=== PATIENT | male | born 2000 | race American Indian/Alaskan Native ===

== ENCOUNTER 2023-06-01 18:26 | Emergency (ER) | payer OTHER, SELFPAY ==
[2023-06-01 18:56] VITALS: BP 129/82; PULSE 100; RESP 16; TEMP 36.9; O2SAT 99; BMI 25.8
[2023-06-01] MEDS: ONDANSETRON 4 MG/2 ML INJ IV (20:04)
[2023-06-01 20:20] LABS: Chloride 100 mmol/L (98-107); HEMOLYSIS < 15 (0-50)
[2023-06-01 20:22] LABS: Add Manual Diff / Slide Review NO; Basophils Absolute Auto 100 /uL (0-100); Basophils Percent Auto 0.8 % (0-2); Eosinophils Absolute Auto 100 /uL (0-450); Eosinophils Percent Auto 0.8 % (2-4); Hematocrit 44.8 % (41-53); Hemoglobin 15.3 g/dL (13.5-17.5); Lymphocytes Absolute Auto 1200 /uL (1100-4500); Lymphocytes Percent Auto 14.7 % (25-40); Mean Corpuscular Hemoglobin 27.6 PG (26-34); Mean Corpuscular Volume 81.1 fL (80-100); Monocytes Absolute Auto 400 /uL (0-900); Monocytes Percent Auto 5.2 % (3-14); Neutrophils Absolute Auto 6600 /uL (1500-7000); Neutrophils Percent Auto 78.5 % (50-75); Platelet Count 236 X10^3/uL (150-400); Red Blood Cell Count 5.53 X10^6/uL (4.5-5.9); Red Cell Distribution Width 14.1 % (11.6-14.8); White Blood Cell Count 8.3 X10^3/uL (4.5-11.0)
[2023-06-01 20:23] LABS: Alanine Aminotransferase 24 IU/L (<50); Albumin Globulin Ratio 1.4 (1.0-2.8); Alkaline Phosphatase 92 U/L (38-126); Aspartate Aminotransferase 24 IU/L (17-59); BUN Creatinine Ratio 8.8 (6-22); Bilirubin Total 0.6 mg/dL (0.2-1.3); Blood Urea Nitrogen 10 mg/dL (9-20); Carbon Dioxide 31 mmol/L (22-32); Estimated Glomerular Filt Rate > 60 mL/min (>60); Globulin 3.6 g/dL (1.7-4.1); Glucose 107 mg/dL (70-100); Lipase 114 U/L (23-300); Sodium 141 mmol/L (137-145); Total Protein 8.6 g/dL (6.3-8.2)
[2023-06-01] MEDS: SODIUM CHLORIDE 0.9% 1,000 ML 1000 ML IV (20:51)
[2023-06-01 23:00] VITALS: BP 124/70; PULSE 85; RESP 18; O2SAT 100
--- NOTE | 2023-06-01 23:24 | ED_ITS ---
HPI - General Adult General Chief complaint: Abdominal Pain Stated complaint: SENT BY [facility]/N/V Time Seen by Provider: 06/01/23 21:24 Source: patient Mode of arrival: Ambulatory History of Present Illness HPI narrative: 23-year-old gentleman with no diagnosed medical issues presents with 6 months of abdominal pain, intermittent vomiting, intermittent diarrhea. He is new to the area and is unable to establish care with a primary physician was told to come to the ER if symptoms were worsening. He notes that symptoms started around November of this year and had initially been having issues monthly than bimonthly and now is up to almost every other day. Believes he is actually been gaining weight rather than losing weight. He describes no fevers. He is tried Pepcid, Tums, Imodium none of which seem to make much difference. He describes days we has significantly early satiety and days with uncontrolled hunger despite volumes of food eaten. He describes significant bloating, belching and overall abdominal discomfort. There has been no bloody emesis nor bloody stool. Related Data Previous Rx's Medication Instructions Recorded omeprazole 40 mg capsule,delayed 40 mg PO DAILY #30 caps 06/01/23 release ondansetron 4 mg disintegrating 4 mg PO Q8H PRN nausea and 06/01/23 tablet vomiting #30 tabs Allergies Allergy/AdvReac Type Severity Reaction Status Date / Time No Known Drug Allergies Allergy Verified 06/01/23 19:55 Review of Systems Review of Systems Narrative: Pertinent positive and negative findings as per HPI Patient History Social History Smoking Status: Never smoker Smoking Status: Never smoker Exam Initial Vital Signs Initial Vital Signs: Vital Signs Temperature 98.5 F 06/01/23 18:56 Pulse Rate 100 H 06/01/23 18:56 Respiratory Rate 16 06/01/23 18:56 Blood Pressure 129/82 06/01/23 18:56 Pulse Oximetry 99 06/01/23 18:56 Oxygen Delivery Method Room Air 06/01/23 18:56 General: Healthy appearing, in no acute distress. Able to give a complete and coherent history. Well-nourished well-developed HEENT: Moist mucous membranes, normal sclera with reactive pupils, Respiratory: Lungs are clear to auscultation, no wheezing no rales no rhonchi. Full and symmetrical air movement Cardiac: Regular rate and rhythm no murmurs no bruits Abdomen: Soft, nontender, good bowel tones, no flank pain Skin: Warm and dry, no rashes Neurologic: Grossly neurologically intact with no obvious asymmetries or abnormalities Extremities: No trauma, well perfused Psych: Cooperative, appropriate insight and affect Course Orders Ordered: ED Orders 06/01/23 20:08 Complete Blood Count AUTO DIFF Stat Comprehensive Metabolic Panel Stat Lipase Stat Ondansetron HCl (Ondansetron 4 Mg Odt) 4 mg PO NOW PRN PRN Reason: Nausea And Vomiting Ondansetron HCl (Ondansetron 4 Mg/2 Ml Inj) 4 mg IV NOW PRN PRN Reason: Nausea And Vomiting Last Admin: 06/01/23 20:04 Dose: 4 mg Documented By: MICHELL Discontinued Medications Sodium Chloride (Normal Saline 0.9%) 1,000 mls @ 1,000 mls/hr IV BOLUS ONE Stop: 06/01/23 20:55 Last Infusion: 06/01/23 21:48 Dose: 0 mls/hr Documented By: Admin: 06/01/23 20:51 Dose: 1,000 mls/hr Documented By: MICHELL Vital Signs Vital signs: Vital Signs - 8 hr 06/01/23 18:56 Temperature 98.5 F Pulse Rate 100 H Respiratory Rate 16 Blood Pressure 129/82 Pulse Oximetry 99 Oxygen Delivery Method Room Air Medical Decision Making Lab Data 06/01/23 20:08 06/01/23 20:08 Labs: Lab Results 06/01/23 06/01/23 Range/Units 20:08 20:08 WBC 8.3 (4.5-11.0) X10^3/uL RBC 5.53 (4.5-5.9) X10^6/uL Hgb 15.3 (13.5-17.5) g/dL Hct 44.8 (41-53) % MCV 81.1 (80-100) fL MCH 27.6 (26-34) PG MCHC 34.0 (30-36) % RDW 14.1 (11.6-14.8) % Plt Count 236 (150-400) X10^3/uL Neut % (Auto) 78.5 H (50-75) % Lymph % (Auto) 14.7 L (25-40) % [place] % (Auto) 5.2 (3-14) % Eos % (Auto) 0.8 L (2-4) % Baso % (Auto) 0.8 (0-2) % Neut # (Auto) 6600 (9696-7226) /uL Lymph # (Auto) 1200 (8233-4282) /uL [place] # (Auto) 400 (0-900) /uL Eos # (Auto) 100 (0-450) /uL Baso # (Auto) 100 (0-100) /uL Sodium 141 (137-145) mmol/L Potassium 4.0 (3.4-5.1) mmol/L Chloride 100 (98-107) mmol/L Carbon Dioxide 31 (22-32) mmol/L BUN 10 (9-20) mg/dL Creatinine 1.13 (0.66-1.25) mg/dL Estimated GFR > 60 (>60) mL/min BUN/Creatinine Ratio 8.8 (6-22) Glucose 107 H (70-100) mg/dL Calcium 10.0 (8.4-10.2) mg/dL Total Bilirubin 0.6 (0.2-1.3) mg/dL AST 24 (17-59) IU/L ALT 24 (<50) IU/L Alkaline Phosphatase 92 (38-126) U/L Total Protein 8.6 H (6.3-8.2) g/dL Albumin 5.0 (3.5-5.0) g/dL Globulin 3.6 (1.7-4.1) g/dL Albumin/Globulin Ratio 1.4 (1.0-2.8) Lipase 114 (23-300) U/L Urine Dip Bedside Urine Glucose Negative Bedside Urine Bilirubin - Negative Bedside Urine Ketone - Negative Urine Specific Marc[place] 1.010 Bedside Urine Occult Blood - Negative Bedside Urine pH 6.5 Bedside Urine Protein - Negative Bedside Urine Urobilinogen - Negative Bedside Urine Nitrite - Negative Bedside Urine Leukocytes - Negative Esterase Point of care testing: Urine Dip Bedside Urine Glucose Negative Bedside Urine Bilirubin - Negative Bedside Urine Ketone - Negative Urine Specific [place] 1.010 Bedside Urine Occult Blood - Negative Bedside Urine pH 6.5 Bedside Urine Protein - Negative Bedside Urine Urobilinogen - Negative Bedside Urine Nitrite - Negative Bedside Urine Leukocytes - Negative Esterase MDM Narrative Medical decision making narrative: CC: 6 months worsenign nausea, vomiting , diarrhea Complicating co-morbidities: Symptoms have been ongoing for 6 months. Patient denies any marijuana use. Data collected from: patient, mother Social determinants of health that may influence the patients condition: No current primary care physician appointment is set up. Differential considered: Anxiety, H pylori, C diff, in the absence of any marijuana use, cannabinoid hyperemesis syndrome is less likely, other explanations for gastroparesis Exam documented above, pertinent findings include: Very benign exam Lab Test results independently reviewed as above. Pertinent findings: CBC is unremarkable Metabolic panel is reassuring Treatments: Parenteral Zofran Discussion: 23-year-old gentleman with 6 months of increasing nausea and vomiting diarrhea. Well his symptoms are certainly concerning in the absence of weight loss, blood in any of the vomit or stool, normal labs and very benign exam there is no indication for additional imaging or hospitalization at this time. Does need to see his primary care physician. Has been given package to return to the lab with an outpatient stool sample to check for stool pathogens. Will have him try omeprazole for a month to see if this changes anything. Prescription for Zofran for symptomatic control of his nausea. Findings are reviewed with him, he is safe for discharge home Discharge Plan Departure Patient Disposition: Home Clinical Impression: Diarrhea Qualifiers: Diarrhea type: unspecified type Qualified Code(s): R19.7 - Diarrhea, unspecified Nausea & vomiting Qualifiers: Vomiting type: unspecified Qualified Code(s): R11.2 - Nausea with vomiting, unspecified Activity Restrictions/Additional Instructions: Thank you for coming in today While I do not have a definitive answer for the 6 months of increasing nausea, vomiting, diarrhea and bloating I am also not finding any life-threatening abnormalities. There is no sign of severe bacterial infection, chronic anemia, liver or kidney problems. At this time I would still like to get another stool sample. I have given you an outpatient request, please bring that back in when you are able to provide a sample. If the stool is formed it is not going to be helpful. A stool sample specifically for diarrhea. I am also going to suggest that you try omeprazole, a stomach acid weigher and mixer medication, daily for the next month to see if changes your symptoms. To help with the symptoms themselves, I have given you a prescription for Zofran for nausea. Please contact Dr. Thomas's office and let them know that you were seen in the emergency department, see if you are able to schedule an emergency follow-up visit prior to your new patient appointment later in June. If you find that you are getting worse or develop any new symptoms, please feel free to return to the emergency department for further evaluation. Prescriptions: New omeprazole 40 mg capsule,delayed release(DR/EC) 40 mg PO DAILY Qty: 30 0RF ondansetron 4 mg tablet,disintegrating 4 mg PO Q8H PRN (Reason: nausea and vomiting) Qty: 30 0RF Referrals: Miscellaneous,Doctor, MD [Primary Care Provider] - Stand Alone Forms: Patient Portal/API
[2023-06-01 23:48] VITALS: BP 123/90; PULSE 92; RESP 18; TEMP 36.7; O2SAT 98
[2023-06-02 15:18] LABS: Adenovirus F 40/41 Not Detected (Not Detect); Astrovirus Not Detected (Not Detect); Campylobacter Not Detected (Not Detect); Clostridium difficile toxin AB Not Detected (Not Detect); Cryptosporidium Not Detected (Not Detect); Cyclospora cayetanensis Not Detected (Not Detect); Entamoeba histolytica Not Detected (Not Detect); Enteroaggregative E.coli Not Detected (Not Detect); Enteropathogenic E.coli Not Detected (Not Detect); Enterotoxigenic E.coli It/st Not Detected (Not Detect); Giardia lamblia Not Detected (Not Detect); Norovirus GI/GII Not Detected (Not Detect); Plesiomonsa shigelloides Not Detected (Not Detect); Rotavirus A Not Detected (Not Detect); Salmonella Not Detected (Not Detect); Sapovirus Not Detected (Not Detect); Shiga-like toxin-prod E.coli Not Detected (Not Detect); Shigella/Enteroinvasive E.coli Not Detected (Not Detect); Vibrio Not Detected (Not Detect); Vibrio cholerae Not Detected (Not Detect); Yersinia enterocolitica Not Detected (Not Detect)
== END 2023-06-02 00:03 | disposition home or self-care (01) ==
LOC: ED 23:52 → LAB 06-02 23:42
PROVIDERS: Emergency Provider Emergency Medicine
DX: R11.2 Nausea with vomiting, unspecified (principal); R19.7 Diarrhea, unspecified
CPT/HCPCS: 36415; 80053; 81003; 83690; 85025; 87507; 99284; J2405

== ENCOUNTER → 2023-08-30 16:04 | Outpatient (CLI) | payer OTHER, SELFPAY ==
--- NOTE | 2023-08-30 16:07 | DI.RAD.S_ITS ---
PROCEDURE: XR ANKLE LT MIN 3V INDICATIONS: Left ankle injury TECHNIQUE: 3 views of the ankle were acquired. COMPARISON: None. FINDINGS: Bones: No fractures or dislocations. Ankle mortise is normally aligned. No suspicious bony lesions. The talar dome demonstrates no jonny abnormality. Soft tissues: No tibiotalar joint effusion. Achilles tendon appears normal. IMPRESSION: Normal ankle plain films. If it would be helpful for clinical management decision making, please consider a dedicated, scheduled ankle MRI for further evaluation (assuming that there is no contraindication). Dictated by: Clifford Ritchie M.D. on 08/30/2023 at 15:39 Approved by: Clifford Ritchie M.D. on 08/30/2023 at 15:40
== END ==
PROVIDERS: Referring Provider Registered Nurse; Visit Provider Registered Nurse
DX: M25.572 Pain in left ankle and joints of left foot (principal)
CPT/HCPCS: 73610

== ENCOUNTER → 2024-09-06 11:52 | Outpatient (CLI) | payer OTHER, SELFPAY ==
[2024-09-06 12:46] LABS: Hemoglobin A1C% w Est Avg Glu 5.3 % (4.0-6.0)
[2024-09-06 13:05] LABS: Alanine Aminotransferase 46 IU/L (<50); Albumin 4.7 g/dL (3.5-5.0); Albumin Globulin Ratio 1.8 (1.0-2.8); Alkaline Phosphatase 80 U/L (38-126); Aspartate Aminotransferase 33 IU/L (17-59); BUN Creatinine Ratio 9.2 (6-22); Bilirubin Total 0.9 mg/dL (0.2-1.3); Blood Urea Nitrogen 11 mg/dL (9-20); Calcium 10.1 mg/dL (8.4-10.2); Carbon Dioxide 29 mmol/L (22-32); Chloride 104 mmol/L (98-107); Cholesterol 181 mg/dL (140-199); Estimated Glomerular Filt Rate > 60 mL/min (>60); Globulin 2.6 g/dL (1.7-4.1); Glucose 112 mg/dL (70-100); HDL Cholesterol 32 mg/dL (40-60); HEMOLYSIS < 15 (0-50); LDL Cholesterol Calculated 91 mg/dL (<100); Potassium 4.6 mmol/L (3.4-5.1); Sodium 140 mmol/L (137-145); Total Protein 7.3 g/dL (6.3-8.2); Triglycerides 292 mg/dL (35-150)
== END ==
PROVIDERS: PCP Family Medicine; Referring Provider Family Medicine; Visit Provider Family Medicine
DX: Z00.00 Encounter for general adult medical examination without abnormal findings (principal)
CPT/HCPCS: 36415; 80053; 80061; 83036